=== PATIENT | female | born 2000 | race Two or more races ===

== ENCOUNTER → 2024-11-19 | Emergency (ER) | payer OTHER ==
[~2024-11-19] VITALS: Ht 160 cm; Wt 51.7 kg
[~2024-11-19] MED LIST: DIPHENHYDRAMINE HCL 50 MG/ML VIAL 1ML IM ONE; METHYLPREDNISOLONE SOD SUCC 125 MG VIAL IV ONE
== END | disposition home or self-care (01) ==
LOC: ER 09:35
DX: R60.9 Edema, unspecified (principal); Z88.2 Allergy status to sulfonamides